=== PATIENT | male | born 1935 | race Caucasian/White ===

== ENCOUNTER 2016-11-12 06:16 | Day surgery (SDC) | payer MEDICARE, OTHER ==
[2016-11-12] MEDS ORDERED: PREDNISOLONE ACETATE 1% OPTH 10ML BOTTLE OPTH ONE (10:05)
[2016-11-12] MEDS ORDERED: DICLOFENAC SODIUM 2.5 ML DROPS OPTH ONE (10:05)
[2016-11-12] MEDS ORDERED: TETRACAINE HCL 0.5% 15 ML OPTH BTL OPTH ONE (10:05)
[2016-11-12] MEDS ORDERED: LIDOCAINE 2% MDV (20MG/ML) 20ML VIAL IV ONE (10:05)
[2016-11-12] MEDS ORDERED: TOBRAMYCIN 0.3% OPTH DROP 5 ML BTL OPTH ONE (10:05)
[2016-11-12] MEDS ORDERED: NEOMYCIN/POLY./DEXAM OPTH OINT OPTH ONE (10:05)
[2016-11-12] MEDS ORDERED: EPINEPHRINE 1 MG/ML AMPUL SQ ONE (10:05)
[2016-11-12] MEDS ORDERED: PHENYLEPHRINE HCL 10% OPTH BTL OPTH ONE (10:05)
[2016-11-12] MEDS ORDERED: TROPICAMIDE 1% 15ML BTL OP ONE (10:05)
--- NOTE | 2016-11-12 15:44 | OP NOTE CHAMES ---
DATE OF PROCEDURE: 11/12/16 PREOPERATIVE DIAGNOSIS: Nuclear sclerotic and posterior subcapsular cataract, left eye. POSTOPERATIVE DIAGNOSIS: Nuclear sclerotic and posterior subcapsular cataract, left eye. OPERATION: Phacoemulsification of cataractous lens with implantation of intraocular lens. LENS IMPLANT USED: Coto Model PCB00 + 22.0 diopters. COMPLICATIONS: None. PROCEDURE IN DETAIL: Following a retrobulbar and facial block, the patient was prepped and draped in the usual fashion for eye surgery. A lid speculum was placed in the left eye after which a 2.4 mm tunnel wound was placed at the temporal limbus and dissected into clear cornea. A paracentesis was placed at 2 oclock hours to the left and right of the initial incision and the chamber deepened with Viscoelastic. The keratome was then used to enter the anterior chamber after which the continuous circular capsulorrhexis was accomplished without difficulty using a bent needle and a Utrata forceps. Hydrodissection and hydrodelineation of the lens was performed after which the nucleus of the lens was removed using the Phaco handpiece in the [id number] technique. The residual cortical material was irrigated and aspirated from the eye after which the bag and chamber were re-examined. The bag was re-inflated with Viscoelastic and the intraocular lens injected into the capsular bag where it centered well. The Viscoelastic was then copiously irrigated and aspirated from the eye after which the temporal tunnel wound and paracentesis were hydrated and the wounds were examined. They were noted to be watertight. The lid speculum was removed from the eye and the eye patched and shielded. The patient was transferred to the recovery room in satisfactory condition and given an appointment to be reexamined in the clinic later today or as directed by Dr. King. Maxim King M.D. Date & Time JOB NUMBER: [id number] [facility]TDD
== END 2016-11-12 09:05 | disposition home or self-care (01) ==
LOC: SUR 06:16
PROVIDERS: ATTEND Ophthalmology
DX: H25.12 Age-related nuclear cataract, left eye (principal); H25.042 Posterior subcapsular polar age-related cataract, left eye; I10 Essential (primary) hypertension; E78.00 Pure hypercholesterolemia, unspecified
CPT/HCPCS: J0171

== ENCOUNTER 2016-11-26 08:51 | Day surgery (SDC) | payer MEDICARE, OTHER ==
[2016-11-26] MEDS ORDERED: PHENYLEPHRINE HCL 10% OPTH BTL OPTH ONE (13:46)
[2016-11-26] MEDS ORDERED: LIDOCAINE 2% MDV (20MG/ML) 20ML VIAL IV ONE (13:46)
[2016-11-26] MEDS ORDERED: NEOMYCIN/POLY./DEXAM OPTH OINT OPTH ONE (13:46)
[2016-11-26] MEDS ORDERED: TETRACAINE HCL 0.5% 15 ML OPTH BTL OPTH ONE (13:46)
[2016-11-26] MEDS ORDERED: TROPICAMIDE 1% 15ML BTL OP ONE (13:46)
[2016-11-26] MEDS ORDERED: TOBRAMYCIN 0.3% OPTH DROP 5 ML BTL OPTH ONE (13:46)
[2016-11-26] MEDS ORDERED: EPINEPHRINE 1 MG/ML AMPUL SQ ONE (13:46)
[2016-11-26] MEDS ORDERED: DICLOFENAC SODIUM 2.5 ML DROPS OPTH ONE (13:46)
[2016-11-26] MEDS ORDERED: PROPOFOL 10 MG/ML VIAL IV ONE (14:00)
--- NOTE | 2016-11-26 14:54 | OP NOTE CHAMES ---
DATE OF PROCEDURE: 11/26/16 PREOPERATIVE DIAGNOSIS: Nuclear sclerotic cataract, right eye. POSTOPERATIVE DIAGNOSIS: Nuclear sclerotic cataract, right eye. OPERATION: Phacoemulsification of cataractous lens with implantation of intraocular lens. LENS IMPLANT USED: Coto Model PCB00 + 22.0 diopters. COMPLICATIONS: None. PROCEDURE IN DETAIL: Following a retrobulbar and facial block, the patient was prepped and draped in the usual fashion for eye surgery. A lid speculum was placed in the right eye after which a 2.4 mm tunnel wound was placed at the temporal limbus and dissected into clear cornea. A paracentesis was placed at 2 oclock hours to the left and right of the initial incision and the chamber deepened with Viscoelastic. The keratome was then used to enter the anterior chamber after which the continuous circular capsulorrhexis was accomplished without difficulty using a bent needle and a Utrata forceps. Hydrodissection and hydrodelineation of the lens was performed after which the nucleus of the lens was removed using the Phaco handpiece in the [id number] technique. The residual cortical material was irrigated and aspirated from the eye after which the bag and chamber were re-examined. The bag was re-inflated with Viscoelastic and the intraocular lens injected into the capsular bag where it centered well. The Viscoelastic was then copiously irrigated and aspirated from the eye after which the temporal tunnel wound and paracentesis were hydrated and the wounds were examined. They were noted to be watertight. The lid speculum was removed from the eye and the eye patched and shielded. The patient was transferred to the recovery room in satisfactory condition and given an appointment to be reexamined in the clinic later today or as directed by Dr. King. Maxim King M.D. Date & Time JOB NUMBER: [id number] [facility]
== END 2016-11-26 11:55 | disposition home or self-care (01) ==
LOC: SUR 08:51
PROVIDERS: ATTEND Ophthalmology
DX: H25.11 Age-related nuclear cataract, right eye (principal); I10 Essential (primary) hypertension; E78.00 Pure hypercholesterolemia, unspecified
CPT/HCPCS: J0171

== ENCOUNTER 2017-11-03 15:22 | Emergency (ER) | payer MEDICARE, OTHER ==
--- NOTE | 2017-11-03 15:34 | Emergency Department Record ---
History of Present Illness - General Stated Complaint: CHEST PAIN Time Seen by Provider: 11/03/17 15:28 - History of Present Illness Initial Comments: chest pain 1.5 hours ago and some chest pain at 10:00 am today and he has CAD and had CABG 21 years ago. patient took two 325 aspirins today at 10:00 am. patient takes atenolol 50 mg per day. patient was exercising at [employer] 7 am today and felt something in his chest and 10:00 am more pressure and it went away after 15 minutes and came back strong at 2PM ABOUT 1.5 hours ago. - Related Data Allergies Allergy/AdvReac Type Severity Reaction Status Date / Time No Known Drug Allergies Allergy Verified 11/03/17 15:45 Review of Systems Reviewed: No additional complaints except as noted below Constitutional: Reports: As per HPI. Denies: Chills, Fever, Malaise, Night sweats, Weakness, Weight change Eyes: Reports: As per HPI. Denies: Eye discharge, Eye pain, Photophobia, Vision change ENT: Reports: As per HPI. Denies: Congestion, Dental pain, Ear pain, Epistaxis , Hearing loss, Throat pain Respiratory: Reports: As per HPI. Denies: Cough, Dyspnea, Hemoptysis, Stridor, Wheezes Cardiovascular: Reports: As per HPI, Chest pain. Denies: Arrhythmia, Dyspnea on exertion, Edema, Murmurs, Orthopnea, Palpitations, Paroxysmal nocturnal dyspnea, Rheumatic Fever, Syncope Endocrine: Reports: As per HPI. Denies: Fatigue, Heat or cold intolerance, Polydipsia, Polyuria Gastrointestinal: Reports: As per HPI. Denies: Abdominal pain, Constipation, Diarrhea, Hematemesis, Hematochezia, Melena, Nausea, Vomiting Genitourinary: Reports: As per HPI. Denies: Dysuria, Frequency, Hematuria, Incontinence, Retention, Testicular pain, Testicular mass, Urgency Musculoskeletal: Reports: As per HPI. Denies: Arthralgia, Back pain, Gout, Joint swelling, Myalgia, Neck pain Skin: Reports: As per HPI. Denies: Bruising, Change in color, Change in hair/ nails, Lesions, Pruritus, Rash Neurological: Reports: As per HPI. Denies: Abnormal gait, Confusion, Headache, Numbness, Paresthesias, Seizure, Tingling, Tremors, Vertigo, Weakness Psychiatric: Reports: As per HPI. Denies: Anxiety, Auditory hallucinations, Depression, Homicidal thoughts, Suicidal thoughts, Visual hallucinations Hematological/Lymphatic: Reports: As per HPI. 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 - NEURO Hx Neuro Disorders: No - GI Hx GI Disorders: Yes Comment:: hx of polyps - Hx Genitourinary Disorders: No - ENDOCRINE Hx Endocrine Disorders: No - MUSCULOSKELETAL Hx Musculoskeletal Disorders: Yes Hx Arthritis: Yes (had knee replacement) Comment:: OA - PSYCH Hx Psych Problems: No - HEMATOLOGY/ONCOLOGY Hx Hematology/Oncology Disorders: Yes Hx Cancer: Yes (skin (basal)) Comment:: bleeding tendencies Family Medical History Hx Heart Disease: Brother/Sister Physical Exam - General General Appearance: Alert, Oriented x3, Cooperative, Mild distress - Head Head exam: Normal inspection - Eye Eye exam: Normal appearance, PERRL Pupils: Normal accommodation - ENT ENT exam: Normal exam, Mucous membranes moist, Normal external ear exam, Normal orophraynx, TM's normal bilaterally Ear exam: Normal external inspection. negative: External canal tenderness Nasal Exam: Normal inspection. negative: Discharge, Sinus tenderness Mouth exam: Normal external inspection, Tongue normal Teeth exam: Normal inspection. negative: Dental caries Throat exam: Normal inspection. negative: Tonsillar erythema, Tonsillar exudate - Neck Neck exam: Normal inspection, Full ROM. negative: Tenderness - Respiratory Respiratory exam: Normal lung sounds bilaterally. negative: Respiratory distress - Cardiovascular Cardiovascular Exam: Regular rate, Normal rhythm, Normal heart sounds - GI/Abdominal GI/Abdominal exam: Soft, Normal bowel sounds. negative: Tenderness - Rectal Rectal exam: Deferred - exam: Deferred - Extremities Extremities exam: Normal inspection, Full ROM, Normal capillary refill. negative: Tenderness - Back Back exam: Reports: Normal inspection, Full ROM. Denies: Muscle spasm, Rash noted, Tenderness - Neurological Neurological exam: Alert, Normal gait, Oriented X3, Reflexes normal - Psychiatric Psychiatric exam: Normal affect, Normal mood - Skin Skin exam: Dry, Intact, Normal color, Warm Course - Reevaluation(s) Reevaluation #1: Discussed case with Dr. 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
[2017-11-03 15:39] LABS: BASO % 0.4 % (0-6); EOS % 4.1 % (0-6); GRAN % 62.9 % (47-80); HEMATOCRIT 45.1 % (42.0-52.0); HEMOGLOBIN 15.5 gm/dl (14.0-18.0); LYMPH % 22.3 % (16-45); MEAN CORPUSCULAR HGB CONC 34.4 g/dl (32-36); MONO % 10.3 % (0-9); PLATELET COUNT 164 K/uL (130-400); RED BLOOD COUNT 4.85 M/uL (4.40-5.70); RED CELL DISTRIBUTION WIDTH 13.6 % (11.5-14.5); WHITE BLOOD COUNT W/O DIFF 7.8 K/uL (4.2-12.2)
[2017-11-03] MEDS: NITROGLYCERIN/D5W 50 MG/250 ML ML IV SCH (15:45)
[2017-11-03 15:48] LABS: BLOOD UREA NITROGEN 18 mg/dL (8-23)
[2017-11-03 15:49] LABS: CREATININE 0.7 mg/dL (0.7-1.2); EST GLOMERULAR FILTRATION RATE > 60 mL/min
[2017-11-03 15:51] LABS: GLUCOSE,RANDOM 92 mg/dL (74-109)
[2017-11-03 15:53] LABS: INR 1.06; PARTIAL THROMBOPLASTIN TIME 26.1 SECONDS (24.5-39.1); PROTHROMBIN TIME (PATIENT) 11.5 SECONDS (9.5-12.1)
[2017-11-03 15:56] LABS: CKMB 3.3 ng/mL (<6.73)
[2017-11-03] MEDS: HEPARIN SODIUM/D5W 25,000 UNITS/500 ML BAG IV SCH (15:56)
[2017-11-03] MEDS: HEPARIN SODIUM 1000 UNIT/1 ML 10ML VIAL IVP ONE (15:56)
[2017-11-03] MEDS: 0.9 % SODIUM CHLORIDE 1000ML 1,000 ML IV PRN (15:57)
[2017-11-03] MEDS: ASPIRIN 81 MG CHEWABLE TABLET PO ONE (15:58)
--- NOTE | 2017-11-04 15:59 | RADIOLOGY REPORT ---
EXAM: CHEST 1 VIEW HISTORY: CHEST PAIN. TECHNIQUE: AP frontal view of the chest. COMPARISON: None. FINDINGS: Cardiomegaly with sternotomy wires and mediastinal clips. Osteopenia. Chronic changes to the shoulders bilaterally. No pneumothorax. Mild interstitial edema. No discrete pneumothorax. Patchy bibasilar infiltrates. IMPRESSION: CARDIOMEGALY WITH MILD INTERSTITIAL EDEMA. PATCHY BIBASILAR INFILTRATES. [facility]BER: [id number] [facility]
== END 2017-11-03 16:09 | disposition short-term general hospital (02) ==
LOC: ER 15:22
DX: I21.3 ST elevation (STEMI) myocardial infarction of unspecified site (principal); I25.10 Atherosclerotic heart disease of native coronary artery without angina pectoris; I10 Essential (primary) hypertension; Z87.891 Personal history of nicotine dependence; Z95.1 Presence of aortocoronary bypass graft
CPT/HCPCS: 71045; 80048; 82553; 84484; 85025; 85610; 85730; 93005; 93010; 96365; 96375; 99285